=== PATIENT | male | born 2000 | race Caucasian/White ===

== ENCOUNTER 2023-10-14 22:40 | Emergency (ER) | payer MEDICAID ==
[~2023-10-14] VITALS: Ht 170.2 cm; Wt 69.0 kg
[2023-10-14 23:17] VITALS: BP 146/80; PULSE 121; RESP 18; TEMP 98.6; O2SAT 98
== END 2023-10-15 11:44 | disposition left against medical advice (07) ==
LOC: ER 22:40
DX: F41.9 Anxiety disorder, unspecified (principal); F12.90 Cannabis use, unspecified, uncomplicated; J30.1 Allergic rhinitis due to pollen; I49.9 Cardiac arrhythmia, unspecified
CPT/HCPCS: 93005; 99283